=== PATIENT | male | born 1980 | race American Indian/Alaskan Native ===

== ENCOUNTER 2016-07-28 23:04 | Emergency (ER) | payer SELFPAY ==
[2016-07-29] MEDS ORDERED: NORCO 5/325 PO ONE (02:47)
[2016-07-29] MEDS ORDERED: KEFLEX PO ONE (02:48)
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
[2016-07-29 04:25] VITALS: BP 146/92
== END 2016-07-29 04:25 | disposition home or self-care (01) ==
LOC: ED 23:04
DX: S82.115D Nondisplaced fracture of left tibial spine, subsequent encounter for closed fracture with routine healing (principal); Z98.890 Other specified postprocedural states; Z79.1 Long term (current) use of non-steroidal anti-inflammatories (NSAID); Z79.899 Other long term (current) drug therapy; W34.00XD Accidental discharge from unspecified firearms or gun, subsequent encounter; Y93.89 Activity, other specified; Y99.8 Other external cause status; Y92.89 Other specified places as the place of occurrence of the external cause
CPT/HCPCS: 99282